=== PATIENT | female | born 1980 | race American Indian/Alaskan Native ===

== ENCOUNTER 2018-10-30 04:09 | Emergency (ER) | payer OTHER | END 2018-10-30 07:00 | disposition home or self-care (01) | LOC: ED 04:09 ==

== ENCOUNTER 2018-11-01 10:22 | Emergency (ER) | payer OTHER ==
[2018-11-01 10:30] VITALS: BMI 32.8
[2018-11-01 10:31] VITALS: O2SAT 100
--- NOTE | 2018-11-01 11:25 | ED PDOC ---
Arrival/HPI - General Chief Complaint: Medical Clearance Time Seen by Provider: 11/01/18 10:24 Historian: Patient - History of Present Illness Narrative History of Present Illness (Text): 11/01/18 10:43 37 y/o F w/ no medical history presenting to the Emergency Room for medical clearance. She reports having heavy vaginal bleeding with intermittent abdominal pain for the last couple of days. She reports previously having a positive test on 10/30/18 and was found to have a beta HCG of 600s. Patient states she initially had abdominal pain on initial presentation to [facility], but has then subsided. She reports large clots with mucus from her vagina this morning. 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 Past Medical History - Provider Review Nursing Documentation Reviewed: Yes - Travel History Have you recently traveled outside [place] w/in the past 3 mons?: No - Infectious Disease Hx of Infectious Diseases: None - Cardiac Hx Cardiac Disorders: No - Pulmonary Hx Respiratory Disorders: No - Psychiatric Hx Substance Use: No - Anesthesia Hx Anesthesia: No Family/Social History - Physician Review Nursing Documentation Reviewed: Yes Family/Social History: Unknown Family HX Smoking Status: Never Smoked Hx Alcohol Use: No Hx Substance Use: No Allergies/Home Meds Allergies/Adverse Reactions: Allergies cucumber Allergy (Verified 10/30/18 04:16) ANAPHYLAXIS kiwi Allergy (Verified 10/30/18 04:16) ANAPHYLAXIS Sulfa (Sulfonamide Antibiotics) Adverse Reaction (Verified 10/30/18 04:16) RASH Home Medications: Home Meds Medication Instructions Recorded Confirmed No Known Home Med 10/30/18 10/30/18 Review of Systems - Physician Review All systems were reviewed & negative as marked: Yes Physical Exam Vital Signs Reviewed: Yes Vital Signs Temp Pulse Resp BP Pulse Ox 11/01/18 10:22 98.7 F 88 18 156/66 H 100 Temperature: Afebrile Blood Pressure: Hypertensive Pulse: Regular Respiratory Rate: Normal Appearance: Positive for: Well-Appearing, Non-Toxic, Comfortable Mental Status: Positive for: Alert and Oriented X 3 - Systems Exam Head: Present: Atraumatic, Normocephalic Pupils: Present: PERRL Extroacular Muscles: Present: EOMI Mouth: Present: Moist Mucous Membranes Neck: Present: Normal Range of Motion Respiratory/Chest: Present: Clear to Auscultation Cardiovascular: Present: Regular Rate and Rhythm, Normal S1, S2 Abdomen: Present: Normal Bowel Sounds. No: Tenderness, Distention Neurological: Present: Speech Normal Skin: Present: Warm, Dry, Normal Color. No: Rashes Psychiatric: Present: Alert, Oriented x 3, Normal Insight, Normal Concentration Medical Decision Making ED Course and Treatment: 11/01/18 11:52 Progress Notes Repeat beta HCG is 87. Patient updated on results and confirms she has an appointment with her [employer]OUND [employer]W CHIEF on Sunday. She is advised to continue sanitary pad counts and to monitor her symptoms. She is stable for discharge. Disposition/Present on Arrival - Present on Arrival Any Indicators Present on Arrival: No History of DVT/PE: No History of Uncontrolled Diabetes: No Urinary Catheter: No History of Decub. Ulcer: No History Surgical Site Infection Following: None - Disposition Have Diagnosis and Disposition been Completed?: Yes Diagnosis: Encounter for laboratory test Disposition: HOME/ ROUTINE Disposition Time: 11:54 Patient Plan: Discharge Condition: STABLE Discharge Instructions (ExitCare): Miscarriage (DC) Print Language: IRANIAN Additional Instructions: Please follow up with your collar tailor on Sunday Please continue your sanitary pad counts Referrals: Yandy Lazar MD [Medical Doctor] - Follow up with primary [facility] [Outside] - Follow up with primary Forms: [employer] (Sinhala), WORK NOTE
[2018-11-01 12:14] VITALS: BP 121/75; PULSE 81; RESP 16; TEMP 97.6
== END 2018-11-01 12:14 | disposition home or self-care (01) ==
LOC: ED 10:22
DX: Z04.89 Encounter for examination and observation for other specified reasons (principal)